=== PATIENT | female | born 1970 | race Caucasian/White ===

== ENCOUNTER → 2017-01-13 | Day surgery (SDC) | payer BC ==
--- NOTE | 2017-01-14 10:40 | PATH ---
Surgical Pathology Report Patient Name: PATRICIA PARRA [facility]. Rec. #: [id number] /Age/Gender: 1970 (Age: 46) / F Account: [id number] Location: [facility] Taken: 01/13/2017 Received: 01/13/2017 Reported: 01/14/2017 Physicians: Patricia Duggan M.D. Specimen(s) Received A: LEFT BREAST SPECIMEN WITH CALCIFICATIONS B: LEFT BREAST SPECIMEN WITHOUT CALCIFICATIONS Clinical History Nonpalpable lesion Mammographic findings: Microcalcification, suspicious Final Diagnosis A. BREAST, LEFT, WITH CALCIFICATIONS, STEREOTACTIC BIOPSY: BENIGN BREAST TISSUE SHOWING DENSE STROMAL FIBROSIS WITH ASSOCIATED COARSE STROMAL CALCIFICATIONS. B. BREAST, LEFT, WITHOUT CALCIFICATIONS, STEREOTACTIC BIOPSY: BENIGN BREAST TISSUE SHOWING STROMAL FIBROSIS AND CYSTIC APOCRINE METAPLASIA WITH ASSOCIATED COARSE STROMAL CALCIFICATIONS. Electronically Signed Astrid Nichole M.D. Gross Description A. Received in formalin labeled "left breast with calcifications," are 2 gilman-yellow, cylindrical portions of fibroadipose tissue measuring 2.0 and 2.5 cm in length and averaging 0.3 cm in diameter. The specimens are submitted in toto in one cassette. B. Received in formalin labeled "left breast without calcifications," are 5 gilman-yellow, cylindrical portions of fibroadipose tissue ranging from 1.3-1.8 cm in length and averaging 0.3 cm in diameter. The specimens are submitted in toto in one cassette. Time to formalin fixation: 5 minutes Total formalin fixation time: Approximately 6 hours. 01/13/201701/13/2017
== END | disposition home or self-care (01) ==
LOC: FMAMMOTONE 11:27
PROVIDERS: ATTEND Surgery Surgical Oncology
PROC: 0HBU3ZX Excision of Left Breast, Percutaneous Approach, Diagnostic (ICD-10-PCS; principal; 2017-01-13)
DX: N60.32 Fibrosclerosis of left breast (principal); N60.12 Diffuse cystic mastopathy of left breast; N64.89 Other specified disorders of breast; R92.1 Mammographic calcification found on diagnostic imaging of breast
CPT/HCPCS: 19081; 87899; 88305-TC; A4648